=== PATIENT | male | born 1970 | race Caucasian/White ===

== ENCOUNTER → 2017-11-06 | Outpatient (CLI) | payer BC | END | disposition home or self-care (01) | LOC: GMAJ 10:53 | PROVIDERS: ATTEND Family Medicine | DX: Z00.00 Encounter for general adult medical examination without abnormal findings (principal) ==

== ENCOUNTER → 2017-12-18 | Outpatient (CLI) | payer BC | LOC: GMAL 10:34 | PROVIDERS: ATTEND Family Medicine | DX: E29.8 Other testicular dysfunction (principal); I10 Essential (primary) hypertension; E78.2 Mixed hyperlipidemia ==

== ENCOUNTER → 2018-02-15 | Outpatient (CLI) | payer BC ==
--- NOTE | 2018-02-15 19:29 | RAD ---
EXAM DESCRIPTION: Shoulder,Right 2 or More Views CLINICAL HISTORY: PAIN COMPARISON: None FINDINGS: 2 view(s) submitted. No fracture or dislocation is identified. Bone marrow attenuation is unremarkable. No radiopaque foreign body is identified. IMPRESSION: No acute fracture or dislocation. Electronically signed by: Roel Hart 02/15/2018 7:28 PM CDT
== END ==
LOC: RAD 19:07
PROVIDERS: ATTEND Nurse Practitioner Family
DX: M25.519 Pain in unspecified shoulder (principal)

== ENCOUNTER 2018-04-25 00:51 | Emergency (ER) | payer BC ==
[2018-04-25] MEDS ORDERED: NITROGLYCERIN 0.4 MG 25 EA TAB SL ONE (00:59)
[2018-04-25] MEDS ORDERED: ASPIRIN (CHEWABLE) 81 MG TAB PO ONE (00:59)
[2018-04-25 01:00] VITALS: TEMP 96.7
--- NOTE | 2018-04-25 01:12 | ED.PDOC ---
History of Present Illness - General Chief Complaint: Chest Pain/AL Stated Complaint: chest pain Time Seen by Provider: 04/25/18 00:56 Source: patient Exam Limitations: no limitations Additional Information: C/O SUBSTERNAL CHEST PAIN. RADIATES TO BACK. PRESSURE SENSATION, 2 HOURS DURATION. OCC SOB AND NAUSEA. - History of Present Illness Timing/Duration: 1-3 hours Severity: moderate Location: substernal Activities at Onset: none Prior Chest Pain/Cardiac Workup: no prior chest pain Improving Factors: nothing Worsening Factors: nothing Associated Symptoms: nausea/vomiting, shortness of breath Allergies/Adverse Reactions: Allergies Sulfa Antibiotics Allergy (Verified 04/25/18 01:01) Home Medications: Ambulatory Orders Cholesterol Med 04/25/18 Esomeprazole Magnesium [Nexium] 40 mg PO DAILY #15 cap 04/25/18 Lunesta 04/25/18 Zestril 04/25/18 Review of Systems - Review of Systems Constitutional: Denies: chills, fever EENTM: States: no symptoms reported Respiratory: States: short of breath. Denies: cough, wheezing Cardiology: States: chest pain. Denies: edema, palpitations, syncope Gastrointestinal/Abdominal: States: nausea, vomiting. Denies: abdominal pain, diarrhea Genitourinary: States: no symptoms reported Musculoskeletal: States: no symptoms reported Skin: States: no symptoms reported, other - NO DIAPHORESIS Neurological: States: no symptoms reported Endocrine: States: no symptoms reported Past Medical History (General) - Patient Medical History Hx Hypertension: Yes Surgical History: no surgical history - Vaccination History Hx Pneumococcal Vaccination: No - Triage Comment ED Triage Comment: States feels like band across chest and back. Onset 11pm. Family Medical History - Family History Father Family History: Unknown Physical Exam - Physical Exam General Appearance: Alert, No apparent distress Eyes, Ears, Nose, Throat Exam: PERRL/EOMI, normal ENT inspection Neck: non-tender, supple, normal inspection Respiratory: lungs clear, normal breath sounds Cardiovascular/Chest: regular rate, rhythm, no murmur Gastrointestinal/Abdominal: normal bowel sounds, non tender, soft, no organomegaly Extremity: normal range of motion, non-tender, normal inspection Neurologic: alert, normal mood/affect Skin Exam: normal color, diaphoresis - SLIGHT Lymphatic: no adenopathy Progress - Progress Progress: 04/25/18 01:28 NO CHANGE IN PAIN AFTER ASA AND NTG. WILL TRY MORPHINE 04/25/18 01:43 PT STATES NOW PAIN IS LOCALIZED TO THE EPIGASTRIUM. HAS HAD PAIN IN PAST AND WAS GIVEN "A DRINK" WHICH RELIEVED HIS PAIN. REVIEW OF OLD RECORDS REVEAL NL GB US AND HIDA SCAN 10/201204/25/18 02:05 PT APPEARS MUCH MORE COMFORTABLE. STILL C/O PAIN BUT PRIMARILY NOW IN ABDOMEN. PT IS CLEAR HOWEVER THAT PAIN WAS INITIALLY IN CHEST. WILL GET CT ABDOMEN ALSO. 04/25/18 04:02 STATES HIS PAIN IS COMING BACK AGAIN. RECOMMENDED ADMISSION BUT PT REFUSES. STATES HE JUST WANTS TO GO HOME AND TRY TO GET COMFORTABLE. - EKG/XRAY/CT EKG: Gerardo, Sinus - RATE 59, LAD, OLD INF WALL AL, , nonspecific ST T wave Chg - NAIP, NO OLD FOR COMPARISON XRAY: chest - BOARDERLINE CARDIOMEGALY, NO ACUTE INFILTRATE Departure - Departure Clinical Impression: Epigastric abdominal pain Hypertension Qualifiers: Hypertension type: essential hypertension Qualified Code(s): I10 - Essential ( primary) hypertension Time of Disposition: 04:04 Disposition: Discharge to Home or Self Care Condition: Fair Departure Forms: ED Discharge - Pt. Copy, Patient Portal Self Enrollment Instructions: DI for Chest Pain, Acute Abdomen (Belly Pain) Referrals: Marco Antonio Lagunas III, MD [Primary Care Provider] - 1-2 Weeks Prescriptions: Esomeprazole Magnesium [Nexium] 40 mg PO DAILY #15 cap Home Medications: Ambulatory Orders Cholesterol Med 04/25/18 Esomeprazole Magnesium [Nexium] 40 mg PO DAILY #15 cap 04/25/18 Lunesta 04/25/18 Zestril 04/25/18
[2018-04-25] MEDS ORDERED: MORPHINE SULFATE INJ 10 MG/ML VIAL IV ONE (01:24)
--- NOTE | 2018-04-25 01:24 | RAD ---
EXAM DESCRIPTION: Chest,1 View CLINICAL HISTORY: 48 years Male, CP COMPARISON: AP chest June 11, 2012 FINDINGS: Lungs are clear. No consolidation. No pneumothorax. No significant pleural effusion. Cardiomediastinal silhouette is unremarkable. Osseous structures are unremarkable. IMPRESSION: No acute findings. Electronically signed by: Tyson Valadez MD 04/25/2018 1:23 AM CDT
[2018-04-25] MEDS ORDERED: MORPHINE SULFATE INJ 10 MG/ML VIAL ONE (01:26)
[2018-04-25] MEDS ORDERED: ONDANSETRON INJ 4 MG/2 ML VIAL ONE (01:36)
[2018-04-25] MEDS ORDERED: ONDANSETRON INJ 4 MG/2 ML VIAL IV ONE (01:36)
[2018-04-25] MEDS ORDERED: ALUM & MAG HYDROX-SIMETHICONE 30 ML UD ONE (01:44)
[2018-04-25] MEDS ORDERED: LIDOCAINE HCL 2% (MOUTH-THROAT) 15 ML UD ONE (01:44)
[2018-04-25] MEDS: ALUM & MAG HYDROX-SIMETHICONE 30 ML, LIDOCAINE VISCOUS 2% 15 ML PO ONE ×4 (01:45→01:46)
--- NOTE | 2018-04-25 02:58 | CT ---
CT abdomen and pelvis with contrast on 04/25/2018 CLINICAL INDICATION: Chest and back pain TECHNIQUE: Multiple axial images are obtained throughout the abdomen and pelvis following the administration of IV contrast. This exam was performed according to our departmental dose-optimization program, which includes automated exposure control, adjustment of the mA and/or kV according to patient size and/or use of iterative reconstruction technique. Total DLP is 1338.36 mGy*cm. COMPARISON: 05/19/2010 FINDINGS: Abdomen: The lung bases are clear. There is no aortic aneurysm or dissection. There is mild fatty infiltration of the liver. There is a small right renal cyst. The solid abdominal organs are otherwise unremarkable. There is no abdominal adenopathy. There is no free fluid or free air within the abdomen. The abdominal portion of the GI tract is unremarkable. Pelvis: There is no free fluid in the pelvis. The prostate is mildly enlarged, please correlate with physical exam and PSA levels. There is no pelvic adenopathy. The pelvic portion of the GI tract including the appendix is unremarkable. No acute bony abnormality is noted. IMPRESSION: 1. Mild fatty infiltration of the liver. 2. Mild prostate enlargement. Electronically signed by: Montana Quiroga 04/25/2018 2:57 AM CDT
[2018-04-25 03:00] VITALS: O2SAT 98
--- NOTE | 2018-04-25 03:02 | CT ---
EXAM: CT CHEST ANGIOGRAPHY WITH IV CONTRAST HISTORY: CHEST PAIN, R/O AORTIC DISSECTION COMPARISON: None Available TECHNIQUE: Contiguous axial images of the chest were obtained from the thoracic inlet to the level of the upper abdomen after the administration of intravenous contrast followed by reconstruction images. This exam was performed according to our departmental dose-optimization program, which includes automated exposure control, adjustment of the mA and/or kV according to patient size and/or use of iterative reconstruction technique. FINDINGS: The aorta is of normal contour and tapering. No evidence of aortic dissection or aneurysm. There is no discrete filling defect within the pulmonary arterial system to suggest pulmonary emboli. There is no pericardial or pleural fluid collection. There is no parenchymal consolidation or pneumothorax. Osseous structures are unremarkable. Please see separate report for findings within the abdomen. IMPRESSION: No acute intrathoracic abnormality. Electronically signed by: Tyson Valadez MD 04/25/2018 3:01 AM CDT
[2018-04-25] MEDS ORDERED: PANTOPRAZOLE SODIUM IV 40 MG VIAL IV ONE (03:10)
[2018-04-25 04:01] VITALS: BP 133/77
== END 2018-04-25 04:16 | disposition home or self-care (01) ==
LOC: ER 00:51
DX: R10.13 Epigastric pain (principal); I10 Essential (primary) hypertension; R00.0 Tachycardia, unspecified
CPT/HCPCS: 36415; 71045; 71275; 74177; 80053; 82150; 83690; 84484; 85025; 93005; J2270; J2405